=== PATIENT | male | born 1930 | race Caucasian/White ===

== ENCOUNTER 2020-08-28 12:43 | Outpatient (RCR) | payer MEDICARE, OTHER ==
[~2020-08-28 12:43] MED LIST: LEVAQUIN750 MG ORAL
== END 2020-09-02 | disposition home or self-care (01) ==
LOC: WCC 12:43
DX: L84 Corns and callosities (principal); G20 Parkinson's disease; I10 Essential (primary) hypertension
CPT/HCPCS: 11055